=== PATIENT | female | born 1995 | race Caucasian/White ===

== ENCOUNTER 2024-09-28 20:21 | Emergency (ER) | payer SELFPAY ==
[~2024-09-28] VITALS: Ht 172.7 cm; Wt 113.4 kg
[2024-09-28] MEDS ORDERED: HYDHCL25 PO (22:03)
== END 2024-09-28 22:00 | disposition home or self-care (01) ==
LOC: ER 20:21
DX: N90.810 Female genital mutilation status, unspecified (principal)
CPT/HCPCS: 99283

== ENCOUNTER 2024-10-03 21:49 | Emergency (ER) | payer OTHER ==
[~2024-10-03] VITALS: Ht 172.7 cm; Wt 110.7 kg
[~2024-10-03 21:49] MED LIST: HYDHCL25 PO
== END 2024-10-03 23:31 | disposition left against medical advice (07) ==
LOC: ER 21:49
DX: R45.851 Suicidal ideations (principal); R46.89 Other symptoms and signs involving appearance and behavior; Z53.21 Procedure and treatment not carried out due to patient leaving prior to being seen by health care provider
CPT/HCPCS: 99281

== ENCOUNTER 2024-10-08 10:19 | Emergency (ER) | payer OTHER ==
[~2024-10-08] VITALS: Ht 162.6 cm; Wt 108.9 kg
== END 2024-10-08 10:46 | disposition other institution (70) ==
LOC: ER 10:19
DX: R41.82 Altered mental status, unspecified (principal); G47.00 Insomnia, unspecified
CPT/HCPCS: 93005; 93010; 99284-25

== ENCOUNTER 2024-10-17 09:07 | Observation (INO) | payer OTHER ==
[~2024-10-17] VITALS: Ht 162.6 cm; Wt 99.8 kg
[2024-10-17 10:14] LABS: BASOPHILS ABSOLUTE AUTO 0.02 K/mm3 (0.00-0.23); BASOPHILS PERCENT AUTO 0 % (0-2); EOSINOPHILS ABSOLUTE AUTO 0.06 K/mm3 (0.00-0.68); EOSINOPHILS PERCENT AUTO 1 % (0-6); Hematocrit 42.5 % (33.0-51.0); Hemoglobin 14.2 g/dL (11.5-16.0); IMMATURE GRAN ABSOLUTE AUTO 0.04 K/mm3 (0.00-0.10); IMMATURE GRAN PERCENT AUTO 1 % (0-1); LYMPHOCYTES ABSOLUTE AUTO 1.24 K/mm3 (0.84-5.20); LYMPHOCYTES PERCENT AUTO 17 % (21-46); MONOCYTES ABSOLUTE AUTO 0.50 K/mm3 (0.16-1.47); MONOCYTES PERCENT AUTO 7 % (4-13); Mean Corpuscular HGB Conc 33.4 g/dL (31.5-36.5); Mean Corpuscular Volume 87 fL (80-100); NEUTROPHILS ABSOLUTE AUTO 5.62 K/mm3 (1.96-9.15); NEUTROPHILS PERCENT AUTO 75 % (41-73); NRBC ABSOLUTE 0.02 K/mm3 (0.00-0.02); NRBC Auto 0.3 /100 WBC (0.0-0.2); RDW Coefficient Variation 13.4 % (11.7-14.2); RDW Standard Deviation 42.6 fL (35.1-46.3)
[2024-10-17 10:24] LABS: Acetaminophen, Random <2.0 ug/mL (10.0-30.0); Alanine Aminotransfer (ALT/SGP 16 U/L (12-78); Albumin, Blood 3.5 g/dL (3.4-5.0); Albumin/Globulin Ratio 1.0 (0.8-1.8); Anion Gap 10 mmol/L (3-11); Aspartate Aminotrans (AST/SGOT 22 U/L (12-37); Bilirubin, Total 1.0 mg/dL (0.1-1.0); Blood Urea Nitrogen 8 mg/dL (8-24); CO2, Blood 19 mmol/L (21-32); Calcium, Blood 8.9 mg/dL (8.5-10.1); Chloride, Blood 107 mmol/L (98-108); Creatinine, Blood 0.51 mg/dL (0.40-1.00); Ethanol (Alcohol), Blood, Med <3 mg/dL; Globulin, Blood 3.6 g/dL (2.2-4.0); Glucose, Blood 88 mg/dL (70-99); Potassium, Blood 3.9 mmol/L (3.5-5.5); Salicylate 1.7 mg/dL (2.8-20.0); Sodium, Blood 132 mmol/L (136-145); Thyroid Stimulating Hormone 2.450 uIU/mL (0.360-4.800); Total Protein, Blood 7.1 g/dL (6.4-8.2)
[2024-10-17] MEDS ORDERED: Clobetasol Prop 0.05% Cream 15 gm TOP ONE (10:30)
[2024-10-17 10:37] LABS: Platelet Count 201 K/mm3 (150-400)
[2024-10-17 12:07] LABS: Source, Urine Clean Catch
[2024-10-17 12:21] LABS: Bilirubin, Urine Neg (Neg); Glucose Qualitative, Urine Neg (Neg); Ketones, Urine 3+ (Neg); Leukocyte Esterase, Urine 2+ (Neg); Protein, Urine Neg (Neg); Specific Gravity, Urine 1.010 (1.003-1.022); Urobilinogen, Urine NORM (Normal)
[2024-10-17 12:31] LABS: Color, Urine Pale Yellow (P-Yellow)
[2024-10-17 12:37] LABS: Red Blood Cells, Urine 0-2 /hpf (0-2)
[2024-10-17 14:41] LABS: U Amphetamine Screen Not Detected; U Barbituate Screen Not Detected; U Benzodiazapine Screen Not Detected; U Buprenorphine Screen Not Detected; U Cannabinoids Screen Not Detected; U Cocaine Screen Not Detected; U Methadone Screen Not Detected; U Methamphetamine Screen Not Detected; U Opiates Screen Not Detected; U Oxycodone Screen Not Detected; U Phencyclidine Screen Not Detected
[2024-10-18 20:22] LABS: BASOPHILS ABSOLUTE AUTO 0.02 K/mm3 (0.00-0.23); BASOPHILS PERCENT AUTO 0 % (0-2); EOSINOPHILS ABSOLUTE AUTO 0.22 K/mm3 (0.00-0.68); EOSINOPHILS PERCENT AUTO 3 % (0-6); Hematocrit 45.5 % (33.0-51.0); Hemoglobin 14.9 g/dL (11.5-16.0); IMMATURE GRAN ABSOLUTE AUTO 0.01 K/mm3 (0.00-0.10); IMMATURE GRAN PERCENT AUTO 0 % (0-1); LYMPHOCYTES ABSOLUTE AUTO 1.40 K/mm3 (0.84-5.20); LYMPHOCYTES PERCENT AUTO 21 % (21-46); MONOCYTES ABSOLUTE AUTO 0.60 K/mm3 (0.16-1.47); MONOCYTES PERCENT AUTO 9 % (4-13); Mean Corpuscular HGB Conc 32.7 g/dL (31.5-36.5); Mean Corpuscular Volume 86 fL (80-100); NEUTROPHILS ABSOLUTE AUTO 4.42 K/mm3 (1.96-9.15); NEUTROPHILS PERCENT AUTO 66 % (41-73); NRBC ABSOLUTE 0.00 K/mm3 (0.00-0.02); NRBC Auto 0.0 /100 WBC (0.0-0.2); Platelet Count 311 K/mm3 (150-400); RDW Coefficient Variation 13.5 % (11.7-14.2); RDW Standard Deviation 42.6 fL (35.1-46.3)
[2024-10-23] MEDS ORDERED: ABILIFY MYCITE10 M2 PO (11:57)
== END 2024-10-19 13:00 | disposition other institution (70) ==
LOC: ER 09:07 → EOR 09:08
PROVIDERS: Emergency Medicine; ADMIT Emergency Medicine
DX: F25.0 Schizoaffective disorder, bipolar type (principal); E87.1 Hypo-osmolality and hyponatremia; F84.0 Autistic disorder; J45.909 Unspecified asthma, uncomplicated; L23.7 Allergic contact dermatitis due to plants, except food; B05.9 Measles without complication; R82.998 Other abnormal findings in urine; Z91.51 Personal history of suicidal behavior; Z90.710 Acquired absence of both cervix and uterus; Z98.891 History of uterine scar from previous surgery; Z88.8 Allergy status to other drugs, medicaments and biological substances
CPT/HCPCS: 80053; 80320; 81001; 81025; 84439; 84443; 85025; 96372; 99285; A9270; G0378; G0480

== ENCOUNTER 2024-10-19 10:35 | Inpatient (IN) | payer OTHER ==
[~2024-10-19] VITALS: Ht 172.7 cm; Wt 105.4 kg
[2024-10-19 13:16] VITALS: BP 115/81
[2024-10-19] MEDS ORDERED: Polyethylene Glycol 3350 17 gm PO PRN (13:40)
[2024-10-19] MEDS ORDERED: Ondansetron 4 MG SoluTab MM PRN (13:45)
[2024-10-19] MEDS ORDERED: Aluminum Hydroxide 320MG/5ML 473 ML PO PRN (13:45)
[2024-10-19] MEDS ORDERED: DiphenhydrAMINE HCl 50 MG/ML 1ML Vial IM PRN (13:50)
[2024-10-19 14:02] VITALS: BP 115/81
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
[2024-10-19 20:26] VITALS: BP 128/75
[2024-10-19] MEDS ORDERED: Clobetasol Prop 0.05% Cream 15 gm TOP SCH (21:00)
--- NOTE | 2024-10-19 21:20 | NUR ---
Patient refused HS Zyprexa. Will check back and see if she will change her mind. Told patient it would help her sleep. Will continue close monitoring.
--- NOTE | 2024-10-20 04:09 | NUR ---
SHIFT SUMMARY patient is alert to self and place. She stayed in her room for the entire shift except for5-10 minutes to eat a snack. She denies SI,HI and AVH, but it did appear that she was responding to internal stimuli although she did deny it. At HS, she refused the Zyprexa, but did allow this nurse to administer her steroid cream to the poisen oak on her left forearm. Sleep time at the time of this note is approximately 6.5 hours. Will continue close monitoring every 15 minutes for safety and comfort.
[2024-10-20] MEDS ORDERED: Multivitamins 1 Tab PO SCH (09:00)
--- NOTE | 2024-10-20 17:37 | NUR ---
SHIFT SUMMARY PT HAS BEEN UP AND IN THE MILIEU ALL SHIFT. SHE HAS REFUSED ALL MEDICATIONS AND REFUSED LAB DRAW TODAY. HER PARENTS CAME TO VISIT AND WOULD REALLY LIKE TO BE INVOLVED IN HER PLANNING. MOM SHARED MANY STORIES OF PT'S BEHAVIORS AND THIS RN FEELS THAT IF PT DOES NOT START PARTICIPATING THAT POSSIBLY A 14 DAY DIVERSION OR CONSIDER COMMITTMENT, JUST A THOUGHT. PT DENIES SI/HI/AVH. SHE WAS OBSERVED HAVING A CONVERSATION WITH HERSELF IN HER ROOM AT ONE POINT. Q15 MIN SAFETY CHECKS ALL SHIFT
[2024-10-20 20:48] VITALS: BP 137/91
--- NOTE | 2024-10-21 06:07 | NUR ---
Patient was out in the milieu until HS, Alert and oriented to place and self. She at first did not allow this RN to apply her steroid cream to the poison oak which is now on both of her arms. but did finally agree to allowing the ointment to be given to her for her to put on directly. She stated her devorah will heal her arms. She did spend a good deal of the time pacing the hallway before snack and bedtime. Denies SI,HI and AVH during evening assessment. has slept well since 2129 and is still sleeping at the time of this note. Will continue close observation every 15 minutes for comfort and safety.
--- NOTE | 2024-10-21 17:23 | NUR ---
SHIFT SUMMARY PT DENIES SI/HI/AVH THIS SHIFT. SHE IS PLEASANT AND CALM AND WHEN NOT IN GROUPS SHE PACES THE HALLWAYS. SHE IS CONTINUING TO REFUSE TO TAKE ANY MEDICATIONS INCLUDING THE TOPICAL CREAM. SHE STATES, "I USE [facility], I DO NOT TAKE MEDICATIONS." PT DENIES HAVING POISON OAK ON BUE AND SHE STATE THE LUE AREA IS A COLLOID CYST AND RUE IS PLAQUE PSORIASIS. PT DENIES ANY ITCHING. SHE GUARDED AND CALM. NO MEDICATIONS WERE GIVEN THIS SHIFT. PT PARTICIPATED IN GROUPS AND ALL 15 IN CHECKS WERE DONE.
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
[2024-10-21 20:30] VITALS: BP 125/76
--- NOTE | 2024-10-22 04:43 | NUR ---
SHIFT SUMMARY PATIENT UP WONDERING THE UNIT AT BEGINNING OF SHIFT. CONTINUES TO REFUSE MEDICATIONS, KEEPING BOTH ARMS COVERED WITH ROBE POINTING TO RIGHT ARM WHICH IS SWOLLEN WITH A RED RASH VERBALIZING THAT IT IS PLAQUE PSORIASIS. REFUSING CREAM TO BE PLACED ON RASH. DENIES SI, HI, OR AVH. PATIENT GOING TO BED APROX 2200, SLEEPING OFF AND ON T/O NIGHT, BUT REMAINING IN ROOM. CONTINUE TO MONITOR Q15MIN
[2024-10-22 08:47] LABS: CHOL/HDL RATIO 3.8; Cholesterol 172 mg/dL (50-200); HDL Cholesterol 45 mg/dL (>39); LDL/HDL RATIO 2.4; Low Density Lipoprotein Chol 107 mg/dL (0-110); Triglycerides 101 mg/dL (30-140); Very Low Density Lipoprot Chol 20 mg/dL (6-28)
--- NOTE | 2024-10-22 17:38 | NUR ---
SHIFT SUMMARY PT CONTINUES TO REFUSE ALL MEDICATIONS. SHE PARTICIPATED IN SOME GROUPS TODAY BUT NOT ALL. SHE QUIETLY PACED THE HALLWAYS MOST OF THE DAY. SHE ANSWERS QUESTIONS WITH APPROPRIATE EYE CONTACT. SHE DENIES SI/HI AND ALL HAULLUCINATIONS. PT HAD NO ACUTE EVENTS TODAY. SHE EXPRESSES DESIRE TO D/C HOME AND WAS REQUESTING TO DO SO WHEN SHE HAD HER FAMILY FOR A VISIT. SHE EXPLAINED THAT SHE HAD POISON OAKON HER LUE AND THAT IS WHY SHE WENT TO THE ER AND THEY PUT HER IN THE PSYCH RODNEY ON A HOLD. THIS RN EXPLAINED TO THE FAMILY AND PT THAT DR IS INFORMED OF HER WANT TO D/C HOME TOMORROW AND THEY WILL GET UPDATED WHEN A DECISION AND PLANS HAVE BEEN MADE.
--- NOTE | 2024-10-22 18:06 | NUR ---
THIS PATIENTS PARENTS VISITED THIS SHIFT. THE EXPRESSED THAT THE PROVIDER CALLED THEM TODAY AND SAID THAT HE TOLD THEM THAT THE PATIENT WOULD BE DISCHARGED 10/23. I ASKED FOR CLARITY FROM THEM BECAUSE THE PATINETS HOLD DOESN'T END UNTIL 10/24/24. THEY STATED "THAT IS WHAT WE WERE TOLD". THE PATIENT WANTS TO LEAVE SOON SHE CAN AND REQUESTED INSURANCE CHECKER PHONE NUMBER TODAY.
[2024-10-22 20:49] VITALS: BP 121/90
--- NOTE | 2024-10-23 04:30 | NUR ---
SHIFT SUMMARY PATIENT IN SHOWER AT BEGINNING OF SHIFT. PATIENT CONTINUES TO REF CREAM FOR RASH ON HER ARM. LEFT ARM WITH SMALL RAISED SCABBED AREA, CLEAN AND DRY. RIGHT ARM APPEARS SWOLLEN AND SLIGHTLY RED. PATIENT DENIES SI, HI, OR AVH. MAKING BETTER EYE CONTACT DURING ASSESSMENT THEN THE NIGHT BEFORE. WALKING IN [place] FOR SHORT TIME AFTER SNACK, THEN TO BED AND APPEARS TO BE SLEEPING WELL T/O NIGHT RESP EVEN AND UNLABORED. CONTINUE TO MONITOR Q15MIN
--- NOTE | 2024-10-23 10:57 | NUR ---
SHIFT ASSESSMENT: PT WAS WALKING THE HALLS AT THE BEGINNING OF THE SHIFT. SHE DENIED SI, HI, AVH, ANXIETY AND PHYSICAL PAIN. PT DESCRIBED HER MOOD , "AWESOME." AND HER AFFECT WAS EUTHYMIC. PT INTERACTS WITH PEERS AND REPORTED THAT SHE PLANS ON ATTENDING GROUPS. SHE POLITELY REFUSED MORNING MEDS AND HAS BEEN PLEASANT AND COOPERATIVE WITH CARE.
--- NOTE | 2024-10-23 11:30 | NUR ---
IMPORTANT DISCHARGE INFORMATION PATIENT TO BE DISCHARGED TODAY AROUND 1PM. HER MOTHER BRENDA WILL BE PICKING HER UP. MOM'S PHONE NUMBER IS [phone]. ALL PARTIES VERBALIZE AN UNDERSTANDING MEET NEW FEMALE PCP DR. WALSH AT [facility] FOLLOW UP APPOINTMENT IS 10/30/24 AT 2:40PM FOLOW UP WITH THE [facility]AM ON 10/28/24 AT 2PM. MEET WITH [facility]: FAX# [phone]
[2024-10-23] MEDS ORDERED: ABILIFY MYCITE10 M2 PO ×2 (11:57→11:59)
--- NOTE | 2024-10-23 15:23 | NUR ---
DISCHARGE NOTE ASSUMED PATIENT CARE @1130. PT DISCHARGE APPOINTMENTS, MEDICATIONS, HOW TO ACCESS MEDICAL RECORDS REVIEWED WITH PT. PT EDUCATED ON THE BENEFITS OF MEDICATION COMPLIANCE AND FOLLOWING UP WITH OUTPATIENT CARE SHE VERBALIZED UNDERSTANDING. MEDICATIONS FAXED TO [facility] PER PATIENT REQUEST. PERSONAL ITEMS RETURNED AND PT DISCHARGED TO HOME @ 6229
== END 2024-10-23 13:09 | disposition home or self-care (01) | DRG 885 ==
LOC: BHU 10:35
PROVIDERS: ADMIT Student in an Organized Health Care Education/Training Program
DX: F25.0 Schizoaffective disorder, bipolar type (principal); J45.909 Unspecified asthma, uncomplicated; L23.7 Allergic contact dermatitis due to plants, except food; B05.9 Measles without complication; R39.198 Other difficulties with micturition
CPT/HCPCS: 36415; 80061; 83036; A9270

== ENCOUNTER 2024-11-01 18:38 | Emergency (ER) | payer OTHER ==
[~2024-11-01] VITALS: Ht 172.7 cm; Wt 108.9 kg
[~2024-11-01 18:38] MED LIST changes: +ABILIFY MYCITE10 M2 PO
[2024-11-01 19:48] LABS: Source, Urine Clean Catch
[2024-11-01 20:10] LABS: Bilirubin, Urine Neg (Neg); Glucose Qualitative, Urine Neg (Neg); Ketones, Urine 2+ (Neg); Leukocyte Esterase, Urine 3+ (Neg); Protein, Urine 1+ (Neg); Specific Gravity, Urine 1.025 (1.003-1.022); Urobilinogen, Urine NORM (Normal)
[2024-11-01 20:15] LABS: Color, Urine Yellow (P-Yellow)
[2024-11-01 20:22] LABS: Red Blood Cells, Urine 0-2 /hpf (0-2)
[2024-11-01 20:34] LABS: U Amphetamine Screen Not Detected; U Barbituate Screen Not Detected; U Benzodiazapine Screen Not Detected; U Buprenorphine Screen Not Detected; U Cannabinoids Screen Not Detected; U Cocaine Screen Not Detected; U Methadone Screen Not Detected; U Methamphetamine Screen Not Detected; U Opiates Screen Not Detected; U Oxycodone Screen Not Detected; U Phencyclidine Screen Not Detected
== END 2024-11-01 22:21 | disposition left against medical advice (07) ==
LOC: ER 18:38
PROVIDERS: Student in an Organized Health Care Education/Training Program
DX: R44.3 Hallucinations, unspecified (principal); Z53.29 Procedure and treatment not carried out because of patient's decision for other reasons
CPT/HCPCS: 81001; 81025

== ENCOUNTER 2024-11-03 21:57 | Observation (INO) | payer OTHER ==
[~2024-11-03] VITALS: Ht 172.7 cm; Wt 108.9 kg
[2024-11-04 01:17] LABS: BASOPHILS ABSOLUTE AUTO 0.07 K/mm3 (0.00-0.23); BASOPHILS PERCENT AUTO 1 % (0-2); EOSINOPHILS ABSOLUTE AUTO 0.14 K/mm3 (0.00-0.68); EOSINOPHILS PERCENT AUTO 1 % (0-6); Hematocrit 42.4 % (33.0-51.0); Hemoglobin 14.0 g/dL (11.5-16.0); IMMATURE GRAN ABSOLUTE AUTO 0.02 K/mm3 (0.00-0.10); IMMATURE GRAN PERCENT AUTO 0 % (0-1); LYMPHOCYTES ABSOLUTE AUTO 2.07 K/mm3 (0.84-5.20); LYMPHOCYTES PERCENT AUTO 19 % (21-46); MONOCYTES ABSOLUTE AUTO 1.06 K/mm3 (0.16-1.47); MONOCYTES PERCENT AUTO 10 % (4-13); Mean Corpuscular HGB Conc 33.0 g/dL (31.5-36.5); Mean Corpuscular Volume 87 fL (80-100); NEUTROPHILS ABSOLUTE AUTO 7.81 K/mm3 (1.96-9.15); NEUTROPHILS PERCENT AUTO 70 % (41-73); NRBC ABSOLUTE 0.00 K/mm3 (0.00-0.02); NRBC Auto 0.0 /100 WBC (0.0-0.2); Platelet Count 356 K/mm3 (150-400); RDW Coefficient Variation 13.4 % (11.7-14.2); RDW Standard Deviation 42.0 fL (35.1-46.3)
[2024-11-04 01:52] LABS: Ethanol (Alcohol), Blood, Med <3 mg/dL; Salicylate 1.9 mg/dL (2.8-20.0)
[2024-11-04 01:54] LABS: Acetaminophen, Random <2.0 ug/mL (10.0-30.0); Alanine Aminotransfer (ALT/SGP 14 U/L (12-78); Albumin, Blood 3.7 g/dL (3.4-5.0); Albumin/Globulin Ratio 1.0 (0.8-1.8); Anion Gap 11 mmol/L (3-11); Aspartate Aminotrans (AST/SGOT 16 U/L (12-37); Bilirubin, Total 0.9 mg/dL (0.1-1.0); Blood Urea Nitrogen 7 mg/dL (8-24); CO2, Blood 23 mmol/L (21-32); Calcium, Blood 8.6 mg/dL (8.5-10.1); Chloride, Blood 106 mmol/L (98-108); Creatinine, Blood 0.58 mg/dL (0.40-1.00); Globulin, Blood 3.6 g/dL (2.2-4.0); Glucose, Blood 124 mg/dL (70-99); Potassium, Blood 3.1 mmol/L (3.5-5.5); Sodium, Blood 137 mmol/L (136-145); Total Protein, Blood 7.3 g/dL (6.4-8.2)
[2024-11-04 17:51] LABS: Source, Urine Clean Catch
[2024-11-04 17:55] LABS: Bilirubin, Urine Neg (Neg); Glucose Qualitative, Urine Neg (Neg); Ketones, Urine Neg (Neg); Leukocyte Esterase, Urine Neg (Neg); Protein, Urine Neg (Neg); Specific Gravity, Urine 1.005 (1.003-1.022); Urobilinogen, Urine NORM (Normal)
[2024-11-04 18:32] LABS: Color, Urine Pale Yellow (P-Yellow)
[2024-11-04 18:35] LABS: Red Blood Cells, Urine Not Seen /hpf (0-2); White Blood Cells, Urine 0-2 /hpf (0-5)
[2024-11-04 19:00] LABS: U Amphetamine Screen Not Detected; U Barbituate Screen Not Detected; U Benzodiazapine Screen Not Detected; U Buprenorphine Screen Not Detected; U Cannabinoids Screen Not Detected; U Cocaine Screen Not Detected; U Methadone Screen Not Detected; U Methamphetamine Screen Not Detected; U Opiates Screen Not Detected; U Oxycodone Screen Not Detected; U Phencyclidine Screen Not Detected
== END 2024-11-05 13:53 ==
LOC: ER 21:57 → EOR 21:58
PROVIDERS: ADMIT Emergency Medicine
DX: F25.0 Schizoaffective disorder, bipolar type (principal); F29 Unspecified psychosis not due to a substance or known physiological condition; R45.851 Suicidal ideations; F84.0 Autistic disorder; Z91.148 Patient's other noncompliance with medication regimen for other reason; Z79.899 Other long term (current) drug therapy
CPT/HCPCS: 80053; 80320; 81001; 84703; 85025; 93005; 93010; 99285; A9270; G0378; G0480

== ENCOUNTER 2025-01-15 17:41 | Observation (INO) | payer OTHER ==
[~2025-01-15] VITALS: Ht 172.7 cm; Wt 99.8 kg
[2025-01-15 18:35] LABS: BASOPHILS ABSOLUTE AUTO 0.04 K/mm3 (0.00-0.23); BASOPHILS PERCENT AUTO 0 % (0-2); EOSINOPHILS ABSOLUTE AUTO 0.19 K/mm3 (0.00-0.68); EOSINOPHILS PERCENT AUTO 2 % (0-6); Hematocrit 44.9 % (33.0-51.0); Hemoglobin 15.0 g/dL (11.5-16.0); IMMATURE GRAN ABSOLUTE AUTO 0.02 K/mm3 (0.00-0.10); IMMATURE GRAN PERCENT AUTO 0 % (0-1); LYMPHOCYTES ABSOLUTE AUTO 1.54 K/mm3 (0.84-5.20); LYMPHOCYTES PERCENT AUTO 17 % (21-46); MONOCYTES ABSOLUTE AUTO 0.78 K/mm3 (0.16-1.47); MONOCYTES PERCENT AUTO 9 % (4-13); Mean Corpuscular HGB Conc 33.4 g/dL (31.5-36.5); Mean Corpuscular Volume 88 fL (80-100); NEUTROPHILS ABSOLUTE AUTO 6.55 K/mm3 (1.96-9.15); NEUTROPHILS PERCENT AUTO 72 % (41-73); NRBC ABSOLUTE 0.00 K/mm3 (0.00-0.02); NRBC Auto 0.0 /100 WBC (0.0-0.2); Platelet Count 326 K/mm3 (150-400); RDW Coefficient Variation 13.9 % (11.7-14.2); RDW Standard Deviation 44.8 fL (35.1-46.3)
[2025-01-15 19:10] LABS: Ethanol (Alcohol), Blood, Med <3 mg/dL; Salicylate 2.8 mg/dL (2.8-20.0)
[2025-01-15 19:11] LABS: Source, Urine Clean Catch
[2025-01-15 19:12] LABS: Alanine Aminotransfer (ALT/SGP 16 U/L (12-78); Albumin, Blood 3.7 g/dL (3.4-5.0); Albumin/Globulin Ratio 1.1 (0.8-1.8); Anion Gap 4 mmol/L (3-11); Aspartate Aminotrans (AST/SGOT 15 U/L (12-37); Bilirubin, Total 0.5 mg/dL (0.1-1.0); Blood Urea Nitrogen 7 mg/dL (8-24); CO2, Blood 29 mmol/L (21-32); Calcium, Blood 8.7 mg/dL (8.5-10.1); Chloride, Blood 107 mmol/L (98-108); Creatinine, Blood 0.53 mg/dL (0.40-1.00); Globulin, Blood 3.5 g/dL (2.2-4.0); Glucose, Blood 101 mg/dL (70-99); Potassium, Blood 4.2 mmol/L (3.5-5.5); Sodium, Blood 136 mmol/L (136-145); Total Protein, Blood 7.2 g/dL (6.4-8.2)
[2025-01-15 19:13] LABS: Acetaminophen, Random <2.0 ug/mL (10.0-30.0)
[2025-01-15 19:46] LABS: Bilirubin, Urine Neg (Neg); Glucose Qualitative, Urine Neg (Neg); Ketones, Urine Neg (Neg); Leukocyte Esterase, Urine 2+ (Neg); Protein, Urine Neg (Neg); Specific Gravity, Urine 1.010 (1.003-1.022); Urobilinogen, Urine NORM (Normal)
[2025-01-15 20:18] LABS: Color, Urine Pale Yellow (P-Yellow)
[2025-01-15 20:19] LABS: U Amphetamine Screen Not Detected; U Barbiturate Screen Not Detected; U Benzodiazapine Screen Not Detected; U Buprenorphine Screen Not Detected; U Cannabinoids Screen Not Detected; U Cocaine Screen Not Detected; U Methadone Screen Not Detected; U Methamphetamine Screen Not Detected; U Opiates Screen Not Detected; U Oxycodone Screen Not Detected; U Phencyclidine Screen Not Detected
[2025-01-15 20:24] LABS: Red Blood Cells, Urine 0-2 /hpf (0-2)
[2025-01-16] MEDS ORDERED: OLAN10 PO (17:14)
== END 2025-01-16 13:05 | disposition other institution (70) ==
LOC: ER 17:41 → EOR 17:42 → EDBEDREQTM 01-16 11:00 → EDBEDREQSVC 01-16 11:00 → EDBEDREQDT 01-16 11:00 → EDBEDREQ 01-16 11:00 → EOR 01-16 13:05
PROVIDERS: Student in an Organized Health Care Education/Training Program; ADMIT Student in an Organized Health Care Education/Training Program
DX: F20.9 Schizophrenia, unspecified (principal); R45.851 Suicidal ideations
CPT/HCPCS: 80053; 80320; 81001; 81025; 85025; 99285; A9270; G0378; G0480

== ENCOUNTER 2025-01-16 10:54 | Inpatient (IN) | payer OTHER ==
[~2025-01-16] VITALS: Ht 172.7 cm; Wt 99.0 kg
[2025-01-16] MEDS ORDERED: Polyethylene Glycol 3350 17 gm PO PRN (11:40)
[2025-01-16] MEDS ORDERED: Ondansetron 4 MG SoluTab MM PRN (11:40)
[2025-01-16] MEDS ORDERED: LORazepam 2 MG/ML 1ML Injection IM PRN (11:40)
[2025-01-16] MEDS ORDERED: Aluminum Hydroxide 320MG/5ML 473 ML PO PRN (11:45)
[2025-01-16] MEDS ORDERED: Haloperidol Lactate Inj. 5 MG/ML Injection IM PRN (11:45)
[2025-01-16] MEDS ORDERED: FLU VACC TS2025-26(6MOS UP)/PF 45 MCG/0.5 ML SYRINGE IM ONE (11:45)
[2025-01-16] MEDS ORDERED: DiphenhydrAMINE HCl 50 MG/ML 1ML Vial IM PRN (11:50)
[2025-01-16 13:21] VITALS: BP 123/75
--- NOTE | 2025-01-16 16:35 | NUR ---
PT ARRIVED ON THE UNIT FROM [facility] ED WITH EVON BARRAZA AND SECURITY @1310 TWO RN SKIN CHECK BY HIWOT RN AND EDWARDO ACEVES. NO ISSUES NOTED
[2025-01-16] MEDS ORDERED: OLAN10 PO (17:14)
[2025-01-16 19:43] VITALS: BP 118/74
[2025-01-16 19:56] VITALS: BP 118/74
--- NOTE | 2025-01-17 01:58 | NUR ---
SHIFT SUMMARY PT DENIES SI/HI AND STATES SHE IS HEARING VOICES BUT THEY CALMED DOWN SINCE SHE WAS MEDICATED IN THE ED. SHE WAS GIVEN ZYPREXA AND ABILIFY PRIOR TO U ARRIVAL. SHE SHE C/O R EYE LID SWELLING AFTER TAKING THE ABILIFY, THIS WAS ADDED TO HER ALLERGY LIST. PT IS CALM AND FLAT. SHE IS COOPERATIVE WITH MEDICATIONS AND MEALS. SHE SPENT SOME TIME IN THE GROUP ROOM WATCHING TV BUT MOST OF FREE TIME WAS IN BED RESTING. THERE WERE NO PRN MEDICATIONS GIVEN THIS SHIFT.
--- NOTE | 2025-01-17 05:30 | NUR ---
Assumed pt care at 0200. Pt was lying on her bed with eyes closed and appeared to be asleep. Respirations regular and unlabored, no apparent distress. Staff continues to monitor q15m for safety and wellness.
[2025-01-17] MEDS ORDERED: Multivitamins 1 Tab PO SCH (09:00)
--- NOTE | 2025-01-17 17:59 | NUR ---
SHIFT SUMMARY PT A/O X4; COOPERATIVE WITH CARE. SHE DENIES SI AND HI BUT DOES ENDORSE AH. PT REPORTS THAT SHE HEARS THE VOICES OF GOD AND VINICIO. PT'S R EYE SWOLLEN TODAY FROM POTENTIAL ALLERGIC REACTION TO ABILIFY THAT SHE RECEIVED YESTERDAY. PT STARTED ON RISPERIDONE THIS SHIFT. GENERALIZED EDEMA NOTED TO BILATERAL EXTREMITIES AND TO L ARM. PT STATES THAT THIS IS NORMAL AND DOES NOT HAVE TO DO WITH ALLERGIC REACTION. PT DENIES ANY ITCHING OR RASHES. SHE ATTENDED GROUPS AND MEALS THIS SHIFT. HER AFFECT IS BLUNTED AND HYGIENE IS FAIR.
--- NOTE | 2025-01-17 18:14 | NUR ---
PRN MEDICATION ADMINISTRATION PT REPORTING INCREASE IN VOICES AND FEELING AFRAID/ANXIOUS. PT REQUESTING PRN MEDICATION. MASS SCORE COMPLETED, PLEASE SEE MASS DOCUMENTATION. PT MEDICATED WITH ZYPREXA AT THIS TIME.
[2025-01-17 19:22] VITALS: BP 118/70
--- NOTE | 2025-01-18 05:42 | NUR ---
SHIFT SUMMARY Pt was sleeping at the beginning of the shift and spent most of the evening sleeping. Pt had to be awoken for HS meds and assessment. Pt is A&O, calm, cooperative, eye contact is appropriate. Pt stated that he mood was "pretty good," affect is constricted. Pt denies SI, HI, and hallucinations. Pt also denies pain or other medical issues. No PRNs were requested. Staff continues to monitor q15m for safety and wellness.
[2025-01-18 06:48] LABS: CHOL/HDL RATIO 4.3; Cholesterol 164 mg/dL (50-200); HDL Cholesterol 38 mg/dL (>39); LDL/HDL RATIO 2.9; Low Density Lipoprotein Chol 108 mg/dL (0-110); Triglycerides 88 mg/dL (30-140); Very Low Density Lipoprot Chol 17 mg/dL (6-28)
[2025-01-18 09:10] VITALS: BP 142/85
--- NOTE | 2025-01-18 17:03 | NUR ---
SHIFT SUMMARY PT A/O X3 AND COOPERATIVE WITH CARE. SHE DENIES SI AND HI. HOWEVER SHE DOES REPORT HEARING "THE VOICE OF GOD" AND HAVING "VISIONS" OF MALE GENITALIA. PT REPORTS THAT SHE IS NOT SCARED BY HER HALLUCINATIONS TODAY, MORE "GROSSED OUT". PT HAS SWELLING TO R EYE FROM PREVIOUS ALLERGIC REACTION. PT DENIES ANY ITCHING OR NEW RASHES. THIS RN SPOKE WITH THE PT ABOUT TAKING SOME VISTARIL OR BENEDRYL FOR THE SWELLING, BUT PT DECLINED TO TAKE ANY. PT RECEIVED FIRST INVEGA INJECTION THIS SHIFT. HER AFFECT IS BLUNTED AND SHE OFTEN RESPONDS TO INTERNAL STIMULI. PT'S HYGIENE IS POOR AT THIS TIME AND SHE DECLINED TO TAKE A SHOWER THIS SHIFT. SHE HAD A VISIT WITH HER PARENTS AND SHE ENDED THE VISIT EARLY.
[2025-01-18 19:41] VITALS: BP 130/93
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
[2025-01-19 09:12] VITALS: BP 116/63
--- NOTE | 2025-01-19 18:14 | NUR ---
SHIFT NOTE PT DENIES SI/HI. SHE C/O AUDITORY HAULLUCINATIONS. SHE DESCRIBES THEM BEING SOFT NON-COMMANDING VOICES THAT ARE TELLING HER NOT TO RESPOND TO THEM OR THEY WILL GET LOUDER AND START TELLING HER TO DO THINGS. SHE IS CALM AND FLAT, ALSO BLUNTED. PT HAS A R EYE SWELLING AND REDNESS. SHE HAS SOME REDNESS NOTED TO HER CHEEKS ALSO. THIS EYE HAS BEEN SWOLLEN SINCE SHE RECIEVED THE ABILIFY IN THE ED, PRIOR TO U ADMISSION, BUT SEEMS TO HAVE GOTTEN MORE SWOLLEN. SHE DENIES ANY RASH OR ITCHING. PT HAS PARTICIPATED IN GROUPS AND WAS COOPERATIVE WITH MEDICATIONS. SHE RECIEVED ONE PRN ZYPREXA IN THE AFTERNOON FOR THE AUDITORY HAULLUCINATIONS.
[2025-01-19 19:15] VITALS: BP 153/67
--- NOTE | 2025-01-19 21:52 | NUR ---
MID-SHIFT SUMMARY Pt is A&O, calm, cooperative, eye contact is appropriate. Pt answered questions during the assessment with short, one or two word answers. Pt stated that he mood was "allright," affect is blunted. Pt denies SI and HI. She endorsed AH, adding that the voices are synagogue in nature. Pt denied current VH, TH, pain, or other medical issues. Pt stayed in her room most of the evening, but did come out for snack and meds. No PRNs were requested. Staff continues to monitor q15m for safety and wellness.
--- NOTE | 2025-01-20 03:40 | NUR ---
ASSUMPTION OF CARE ASSUMED CARE OF PATIENT FROM KETAN NICK AT 2200. SHE IS CURRENTLY RESTING QUIETLY IN THEIR BED. NO SIGNS OF ACUTE DISTRESS NOTED. SHE DID NOT RECEIVE ANY PRN MEDICATIONS PRIOR IN THE SHIFT.
--- NOTE | 2025-01-20 05:04 | NUR ---
END OF SHIFT SUMMARY PATIENT HAS SLEPT SINCE THIS PHOTOVOLTAIC TECHNICIAN ASSUMED CARE AT 2200. NO PRN MEDICATIONS WERE UTILIZED. PATIENT DOES NOT SEEM TO BE IN ANY ACUTE DISTRESS
[2025-01-20 08:46] VITALS: BP 130/78
[2025-01-20] MEDS ORDERED: FLU VACC TS2025-26(6MOS UP)/PF 45 MCG/0.5 ML SYRINGE IM SCH (16:25)
--- NOTE | 2025-01-20 17:36 | NUR ---
SHIFT SUMMARY PT A/O X4 AND COOPERATIVE WITH CARE. SHE DENIES SI AND HI. SHE REPORTS AUDITORY HALLUCINATIONS AND SAYS REPORTED THAT THEY WERE REALLY LOUD TODAY AND THEY DISTRACTED HER DURING GROUP. PT REQUESTED PRN ZYPREXA THIS SHIFT TO HELP WITH THE VOICES. PT'S HYGIENE IS POOR AND SHE REQUIRES A LOT OF ENCOURAGEMENT TO PERFORM PERSONAL HYGIENE. HER AFFECT IS FLAT AND SHE SAYS THAT HER MOOD IS "GOOD". PT REQUESTED A FLU SHOT THIS SHIFT AND IT WAS GIVEN TODAY. SHE ATTENDED ALL GROUPS AND MEALS THIS SHIFT.
[2025-01-20 19:28] VITALS: BP 129/85
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
--- NOTE | 2025-01-20 23:23 | NUR ---
Assumed care at 2315. Patient currently sleeping. Will continue close monitoring every 15 minutes for safety and comfort.
--- NOTE | 2025-01-21 05:09 | NUR ---
Patient has continued to sleep since assumption of care. Even rise and fall of chest, moves self in bed and appears to be quite comfortable. Will continue every 15 minute checks per unit protocol for patient safety and comfort.
[2025-01-21 09:02] VITALS: BP 130/79
--- NOTE | 2025-01-21 17:40 | NUR ---
SHIFT SUMMARY PT A/O X3-4; PLEASANT AND COOPERATIVE WITH CARE. SHE DENIES SI, HI, BUT ENDORSES AH. HER AFFECT IS CONSTRICTED AND SHE DESCRIBES HER MOOD "GOOD". PT HAD A VISIT WITH HER PARENTS THIS SHIFT THAT WENT WELL. SHE ALSO ATTENDED MOST GROUPS AND MEALS. SHE IS MONITORED Q15 PER UNIT PROTOCOL FOR SAFETY AND WELLNESS.
[2025-01-21 19:48] VITALS: BP 122/78
--- NOTE | 2025-01-21 23:28 | NUR ---
PT WAS MORE ACTIVE IN MILIEU THIS EVENING THOUGH OBVIOUSLY RESPONDING TO INTERNAL STIMULI. HOLDING A CONVERSATION WITH NOONE ELSE IN ROOM. LAUGHING, TELLING STORIES. NODDING HEAD. DENIES THOUGHTS OF SELF HARM. CHARGE NURSE SPOKE WITH PATIENT TONIGHT REGARDING HYGIENE AND LEAVING BIOHAZARD PRODUCTS (USED TAMPONS) IN BATHROOM. PT AGREEABLE.
--- NOTE | 2025-01-22 04:36 | NUR ---
Assumed care at 2300. Patient has slept well with even chest rise and fall. No changes from previous assessment. Will continue close monitoring every 15 minutes for safety and comfort per unit protocol.
--- NOTE | 2025-01-22 17:46 | NUR ---
SHIFT SUMMARY PT IS CALM THIS SHIFT. SHE DENIES SI/HI. SHE ENDORSES HEARING VOICES BUT THEY ARE SPEAKING SOFTLY. SHE DESCRIBES HER MOOD "HAPPY." SHE WAS FOUND IN THE AFTERNOON SPEAKING LOUDING TO HERSELF WHILE AMBULATING THE HALLWAY. AT THIS TIME SHE STATES THE VOICES GOT A LITTLE LOUDER AND SHE WAS MEDICATED WITH PRN ZYPREXA. SHE WAS COOPERATIVE WITH ALL OTHER MEDICATIONS. SHE HAD A VISIT WITH HER PARENTS IN THE EVENING AND THIS RN UPDATED PARENTS THAT PLAN TO D/C OF TODAY WAS FOR 01/26/25. TEACHING WAS ALSO GIVEN R/T THE INJECTABLE INVEGA AND HOW OFTEN SHE WILL NEED TO GET ONE. PT WAS SMILING AND HAPPY AFTER HER VISIT.
[2025-01-22 19:27] VITALS: BP 124/88
--- NOTE | 2025-01-22 22:58 | NUR ---
MID SHIFT SUMMARY FOR REPORT: PT HAD UNEVENTFUL EVENING. STAYED IN ROOM FOR MOST OF EVENING BUT DID COME TO MED ROOM FOR PM MEDS. STATES "VOICES ARE GETTING SOFTER TODAY." STATES THE VOICES ARE NOT TELLING HER NEGATIVE THINGS ANYMORE. PT CURRENTLY SLEEPING IN BED. NO OTHER C/O THIS EVENING.
--- NOTE | 2025-01-23 04:48 | NUR ---
ASSUMED CARE OF PT AT 2300 FROM KETAN DUMONT. PT STILL SLEEPING AND HAS NOT AWAKEN SINCE GOING TO BED. WENT TO BED AFTER SNACK AND MED TIME. WILL CONTINUE TO MONITOR Q 15 FOR SAFETY AND WELLNESS.
[2025-01-23 08:52] VITALS: BP 127/81
--- NOTE | 2025-01-23 11:15 | NUR ---
Kylah WITT- 2ND DOSE GIVEN, rIGHT dELTOID LOT [id number] S/N [phone] EXP 02/2026
--- NOTE | 2025-01-23 11:33 | NUR ---
SHIFT NOTE PT DENIES SI/HI. SHE DENIES AUDITORY AND TACTILE HAULLUCINATIONS. SHE ENDORSES AUDITORY HAULLUCINATIONS IN THE FORM OF QUIET VOICES. SHE IS EUTHYMIC THIS AM AND JOINING GROUPS AND MEALS. PT SHOWERED AFTER BREAKFAST. SHE WAS ENCOURAGED TO TELL RN IF THE VOICES START TO GET LOUDER, AND SHE STATES UNDERSTANDING. REPORT GIVEN TO KETAN GOODEN.
--- NOTE | 2025-01-23 16:30 | NUR ---
Assumed care of this patient after noon today. She did receive her 2nd injection of Invega this morning. She is tolerating the medication well. The patient reports that her menses is slowing but still present. She denies having pain from menstrual cramps. She can be observed responding to internal stimuli at times as she talks to her self as she walks the hallway. Patient took a shower this shift, has participated in groups and has not had complaints. Please also see previous nursing note.
[2025-01-23 19:49] VITALS: BP 117/67
--- NOTE | 2025-01-24 04:49 | NUR ---
SHIFT SUMMARY PATIENT RESTING LAYING ON HER BED, UP FOR SNACK AND GROUP THAN RETURNING TO BED. DENIES SI, HI, OR AVTH. ANSWERING ASSESSMENT QUESTIONS WITH 1-2 WORDS. VERBALIZED THAT SHE IS FEELING "GOOD" COOPERATIVE WITH PO MEDICATIONS, NO PRN MEDICATIONS GIVEN DURING THE NIGHT. PATIENT SLEEPING WELL T/O THE NIGHT RESP EVEN AND UNLABORED. CONTINUE TO MONITOR Q15MIN
[2025-01-24 08:54] VITALS: BP 130/80
--- NOTE | 2025-01-24 11:13 | NUR ---
ASSUMED PT CARE @0700. PT IS AA&O TO PERSON, PLACE AND SITUATION. EYE CONTACT IS APPROPRIATE. SPEECH IS SPARSE WITH LOW VOLUME. SHE DOES ANSWER QUESTIONS WITH SHORT APPROPRIATE ANSWERS. SHE REPORTS MOOD GOOD WITH A FLAT AFFECT. SHE APPEARS WELL GROOMED. SHE IS COMPLIANT WITH MEDICATIONS, SHE DENIES ANY ADVERSE EFFECTS. SHE HAS BEEN UP FOR BREAKFAST AND GROUP. SHE DENIES SI, HI, AVH. WILL CONTINUE POC
--- NOTE | 2025-01-24 17:59 | NUR ---
SHIFT SUMMARY NO CLINICAL CHANGES FRON ASSUMTION OF CARE. CRUZ HAS SPENT TIME IN HER ROOM, DAY ROOM AND GROUP.SHE HAD A VISIT FROM PARENTS THAT APPEARED TO GO WELL. WILL CONTINUE POC
[2025-01-24 20:43] VITALS: BP 111/78
--- NOTE | 2025-01-25 00:01 | NUR ---
MID SHIFT SUMMARY: PATIENT WAS IN BED AT THE BEGINNING OF THE SHIFT. SHE GOT UP FOR SNACK AND WAS ABLE TO ANSWER COMMISSIONED SECURITY OFFICER QUESTIONS IN A LOGICAL AND LINEAR MANNER. SHE STATED THAT SHE WAS CATCHING UP ON SLEEP AND FELT "GREAT". SHE DENIED SUICIDAL IDEATION, THOUGHTS OF SELF HARMING AND A/V/T HALLUCINATIONS. SHE PARTICIPATED IN SNACK AND WRAP UP GROUP, AND WAS COMPLIANT WITH MEDICATION ADMINISTRATION. SHE THEN WENT BACK TO BED, WHERE SHE WAS NOTED TO BE RESTING QUIETLY WITH EYES CLOSED AND RESPIRATIONS CONFIRMED. CONTINUING TO MONITOR FOR SAFETY WITH Q15 MINUTE CHECKS.
--- NOTE | 2025-01-25 01:00 | NUR ---
Assumed care at 2400. Patiemt resting comfortably with even chest rise and fall. Will continue close monitorng every 15 minutes for comfort and safety
--- NOTE | 2025-01-25 04:52 | NUR ---
no changes from mid shift assessment. Patient has been sleeping soundly with even chest rise and fall. Will continue close monitoring every 15 minutes for comfort and safety per unit protocol.
[2025-01-25 08:56] VITALS: BP 126/78
--- NOTE | 2025-01-25 17:38 | NUR ---
SHIFT SUMMARY PT WOKE EASILY FOR BREAKFAST, PRESENTING ALERT AND ORIENTED WITH GOOD EYE CONTACT, CLEAR AND NORMAL SPEECH, COOPERATIVE IN CARE AND MED COMPLIANT. PT HAS BEEN UP ALL DAY AND INVOLVED IN THE MILIEU, GROUPS, TV ROOM, SHE IS POLITE AND COOPERATIVE. SHE HAS DENIED SI/HI/AVH. PT HAS RECEIVED Q15 MIN VISUAL SAFETY CHECKS THROUGHOUT THE SHIFT.
[2025-01-25 21:19] VITALS: BP 117/75
--- NOTE | 2025-01-25 22:52 | NUR ---
MID SHIFT SUMMARY: PT SLEEPING SOUNDLY. HAS HAD NO C/O THIS EVENING. TOOK MEDICATIONS, HAD SNACK, AND THEN WENT TO BED.
--- NOTE | 2025-01-26 00:21 | NUR ---
Assumed care of patient at 2330. Patient currently sleeping with even chest rise and fall. Will continue close observation every 15 minutes for safety and comfort per unit protocol.
--- NOTE | 2025-01-26 04:30 | NUR ---
Patient has continued to rest well with even chest rise and fall since this nurse took over care at 2330. PLEASE SEE Mid Shift Summary for a more detailed shift summary.
[2025-01-26 08:42] VITALS: BP 124/84
--- NOTE | 2025-01-26 11:31 | NUR ---
IMPORTANT DISCHARGE INFORMATION PATIENT DISCHARGING TODAY. SHE WILL BE GOING HOME AROUND 1PM. HER MOTHER "BRENDA WILL BE COMING TO GET HER. HER NUMBER IS [phone]. FOLLOW UP WITH NEW PCP AT [facility] DR. LARA ON 02/06/25 AT 1:40PM. MENTAL HEALTH REFERRAL PLACED. FOLLOW UP WITH [facility] OPEN [facility] ON THE 3RD FLOOR PHARMACY: [facility] FAX NUMBER [phone] RESOURCES: JOB PROGRAMS
[2025-01-26] MEDS ORDERED: RISP1 PO (12:34)
--- NOTE | 2025-01-26 14:24 | NUR ---
SPENCER SUMMARY PT DC FROM [facility] AT 1315, HER PARENTS PICKED HER UP. ALL BELONGINGS RETURNED TO HER. SHE STATED UNDERSTANDING OF HER DC INFO AND THAT SHE NEEDS TO CALL TO SCHEDULE HER APPTS. SCRIPT WHENT TO [facility]
== END 2025-01-26 13:15 | disposition home or self-care (01) | DRG 885 ==
LOC: BHU 10:54
PROVIDERS: ADMIT Psychiatry & Neurology Psychiatry
DX: F25.0 Schizoaffective disorder, bipolar type (principal); R45.851 Suicidal ideations; F84.0 Autistic disorder; Z88.8 Allergy status to other drugs, medicaments and biological substances; Z79.899 Other long term (current) drug therapy; Z23 Encounter for immunization; Z91.51 Personal history of suicidal behavior; Z79.1 Long term (current) use of non-steroidal anti-inflammatories (NSAID)
CPT/HCPCS: 36415; 80061; 83036; 96372; A9270; G0008